=== PATIENT | male | born 1970 | race Caucasian/White ===

== ENCOUNTER 2023-12-14 16:59 | Emergency (ER) | payer SELFPAY ==
[~2023-12-14] VITALS: Ht 190.5 cm; Wt 95.0 kg
[2023-12-14 17:09] VITALS: BP 146/89; PULSE 93; RESP 18; TEMP 98.1; O2SAT 98
== END 2023-12-14 22:32 | disposition left against medical advice (07) ==
LOC: ER 16:59
DX: R10.9 Unspecified abdominal pain (principal); Z53.21 Procedure and treatment not carried out due to patient leaving prior to being seen by health care provider